=== PATIENT | female | born 1975 | race Caucasian/White ===

== ENCOUNTER 2020-06-21 22:50 | Emergency (ER) | payer OTHER ==
[~2020-06-21] VITALS: Ht 165.1 cm; Wt 57.6 kg
== END 2020-06-22 03:13 | disposition home or self-care (01) ==
LOC: ER 22:50
DX: J06.9 Acute upper respiratory infection, unspecified (principal); R07.89 Other chest pain

== ENCOUNTER 2022-03-29 21:19 | Emergency (ER) | payer OTHER ==
[~2022-03-29] VITALS: Ht 165.1 cm; Wt 59.0 kg
[2022-03-30] MEDS ORDERED: INTESTINEX680 M1 PO (02:34)
[2022-03-30] MEDS ORDERED: PEPCID40 MG PO (02:34)
[2022-03-30] MEDS ORDERED: ONDANSETRON ODT4 MG PO (02:34)
[2022-03-30] MEDS ORDERED: CIPRO500 MG PO ×2 (04:17→04:18)
== END 2022-03-30 04:19 ==
LOC: ER 21:19
DX: K52.9 Noninfective gastroenteritis and colitis, unspecified (principal); Z20.822 Contact with and (suspected) exposure to COVID-19